=== PATIENT | female | born 1980 | race Two or more races ===

== ENCOUNTER → 2023-05-09 | Outpatient (REF) | payer OTHER ==
[2023-05-09 17:21] LABS: TOTAL IRON BINDING CAPACITY 393 UG/DL (250-425)
[2023-05-09 17:23] LABS: ALBUMIN 3.6 G/DL (3.2-5.2); ALKALINE PHOSPHATASE 81 U/L (46-116); ALT/SGPT 14 U/L (7.0-40); AST/SGOT 15 U/L (<34); BILIRUBIN,TOTAL 0.2 MG/DL (0.3-1.2); BLOOD UREA NITROGEN 13 MG/DL (9-23); CALCIUM LEVEL 8.3 MG/DL (8.5-10.1); CARBON DIOXIDE LEVEL 25 MMOL/L (20-31); CHLORIDE LEVEL 107 MMOL/L (98-107); CHOLESTEROL LEVEL 129 MG/DL (<200); CHOLESTEROL RISK RATIO 3.72 (<5); CREATININE FOR GFR 0.54 MG/DL (0.55-1.30); GLOMERULAR FILTRATION RATE > 60.0 (>58); GLUCOSE, FASTING 244 MG/DL (60-100); HDL CHOLESTEROL 34.6 MG/DL (>40); IRON (FE) 10 UG/DL (50-170); LDL CHOLESTEROL 55.8 MG/DL (<100); NON-HDL-C 94.4 MG/DL; PERCENT SATURATION 2.5 % (13.2-45.0); POTASSIUM SERUM 4.9 MMOL/L (3.5-5.1); SODIUM LEVEL 136 MMOL/L (136-145); THYROID STIMULATING HORMONE 1.056 uIU/ML (0.55-4.78); TOTAL PROTEIN 6.9 G/DL (5.7-8.2); TRIGLYCERIDES LEVEL 193 MG/DL (<150)
[2023-05-09 17:24] LABS: FERRITIN 2.5 NG/ML (7.3-270.7)
[2023-05-09 19:12] LABS: CREATININE, URINE 179.5 MG/DL
[2023-05-09 19:13] LABS: MAU/CREAT RATIO 124.2 MCG/MG (0.0-30.0)
== END ==
LOC: M LAB REF 16:26
PROVIDERS: ATTEND Physician Assistant
DX: E55.9 Vitamin D deficiency, unspecified (principal); D64.9 Anemia, unspecified; E11.9 Type 2 diabetes mellitus without complications; I10 Essential (primary) hypertension; E04.9 Nontoxic goiter, unspecified

== ENCOUNTER → 2023-05-17 | Outpatient (CLI) | payer OTHER | LOC: M WHC 14:08 | PROVIDERS: ATTEND Physician Assistant | DX: Z12.31 Encounter for screening mammogram for malignant neoplasm of breast (principal) ==

== ENCOUNTER → 2023-06-06 | Outpatient (CLI) | payer OTHER ==
[2023-06-06 13:42] LABS: BASO # 0.1 10^3/uL (0.0-0.2); BASO % 0.8 % (0.0-1.0); EOS # 0.3 10^3/uL (0.0-0.5); EOS % 3.1 % (0.0-3.0); HEMATOCRIT 30.7 % (36.0-47.0); HEMOGLOBIN 8.3 g/dl (12.0-15.5); LYMPH # 2.2 10^3/uL (1.5-5.0); LYMPH % 24.1 % (24.0-44.0); MEAN CORPUSCULAR HEMOGLOBIN 19.2 pg (27.0-33.0); MEAN CORPUSCULAR VOLUME 70.9 fl (80.0-96.0); MONO # 0.7 10^3/uL (0.0-0.8); MONO % 7.9 % (2.0-8.0); NEUTROPHILS # 5.8 10^3/uL (1.5-8.5); NEUTROPHILS % 63.9 % (36.0-66.0); PLATELET COUNT, AUTOMATED 262 10^3/uL (150-450); RED BLOOD COUNT 4.33 10^6/uL (4.00-5.40); WHITE BLOOD COUNT 9.1 10^3/uL (4.0-10.0)
[2023-06-06 14:04] LABS: ALBUMIN 3.4 G/DL (3.2-5.2); BLOOD UREA NITROGEN 13 MG/DL (9-23); CALCIUM LEVEL 8.5 MG/DL (8.5-10.1); CARBON DIOXIDE LEVEL 26 MMOL/L (20-31); CHLORIDE LEVEL 106 MMOL/L (98-107); CREATININE FOR GFR 0.43 MG/DL (0.55-1.30); GLOMERULAR FILTRATION RATE > 60.0 (>58); GLUCOSE, FASTING 228 MG/DL (60-100); PHOSPHORUS LEVEL 3.2 MG/DL (2.5-4.9); SODIUM LEVEL 139 MMOL/L (136-145)
== END ==
LOC: M WUC 09:24
PROVIDERS: ATTEND Physician Assistant
DX: I10 Essential (primary) hypertension (principal); D64.9 Anemia, unspecified

== ENCOUNTER → 2023-06-29 | Outpatient (REF) | payer OTHER ==
[2023-06-29 19:12] LABS: HEMATOCRIT 33.9 % (36.0-47.0); HEMOGLOBIN 9.2 g/dl (12.0-15.5); MEAN CORPUSCULAR HGB CONC 27.1 g/dl (32.0-36.5); MEAN CORPUSCULAR VOLUME 70.2 fl (80.0-96.0); RED BLOOD COUNT 4.83 10^6/uL (4.00-5.40)
[2023-06-29 19:23] LABS: PERCENT SATURATION 3.4 % (13.2-45.0)
[2023-06-29 19:26] LABS: FERRITIN 1.8 NG/ML (7.3-270.7)
[2023-06-29 19:35] LABS: PLATELET COUNT, AUTOMATED 228 10^3/uL (150-450)
[2023-06-29 19:42] LABS: ATYPICAL LYMPH 1 % (0-5); BASOPHILS 2 % (0-1); EOSINOPHILS 4 % (0-3); LYMPHOCYTES 65 % (16-44); MONOCYTES 10 % (0-5); NEUTROPHILS 18 % (28-66)
[2023-06-29 19:43] LABS: HYPOCHROMASIA 2+
[2023-06-29 19:56] LABS: ANISOCYTOSIS 2+; SCHISTOCYTES 1+
[2023-06-29 19:57] LABS: OVALOCYTES 1+
[2023-06-29 19:58] LABS: BURR CELLS 1+; PLATELET ESTIMATE NORMAL (NORMAL); TARGET CELLS 1+
== END ==
LOC: M LAB REF 17:40
PROVIDERS: ATTEND Physician Assistant
DX: D50.9 Iron deficiency anemia, unspecified (principal)

== ENCOUNTER → 2023-07-06 | Outpatient (CLI) | payer OTHER | LOC: M RAD 15:40 | PROVIDERS: ATTEND Physician Assistant | DX: E04.9 Nontoxic goiter, unspecified (principal) ==

== ENCOUNTER → 2023-08-16 | Outpatient (CLI) | payer OTHER ==
[2023-08-16 16:30] LABS: BLOOD UREA NITROGEN 14 MG/DL (9-23); CALCIUM LEVEL 9.5 MG/DL (8.5-10.1); CARBON DIOXIDE LEVEL 27 MMOL/L (20-31); CHLORIDE LEVEL 104 MMOL/L (98-107); CREATININE FOR GFR 0.51 MG/DL (0.55-1.30); GLOMERULAR FILTRATION RATE > 60.0 (>58); GLUCOSE, FASTING 364 MG/DL (60-100); MAGNESIUM LEVEL 1.6 MG/DL (1.8-2.4); POTASSIUM SERUM 4.1 MMOL/L (3.5-5.1); SODIUM LEVEL 139 MMOL/L (136-145)
== END ==
LOC: M WUC 13:11
PROVIDERS: ATTEND Nurse Practitioner Family
DX: I10 Essential (primary) hypertension (principal)

== ENCOUNTER → 2023-10-04 | Outpatient (REF) | payer OTHER, MEDICAID | LOC: M LAB REF 16:29 | PROVIDERS: ATTEND Nurse Practitioner Family | DX: J02.9 Acute pharyngitis, unspecified (principal) ==

== ENCOUNTER → 2024-03-07 | Outpatient (REF) | payer OTHER, MEDICAID ==
[~2024-03-07] MED LIST: GLIP10TA6 PO; HYDR12.55 PO; IBUP-1022 PO; MAGN250T11 PO; MIRA3350 PO
[2024-03-07 18:32] LABS: ALBUMIN 3.6 G/DL (3.2-5.2); BLOOD UREA NITROGEN 14 MG/DL (9-23); CALCIUM LEVEL 9.2 MG/DL (8.5-10.1); CARBON DIOXIDE LEVEL 28 MMOL/L (20-31); CHLORIDE LEVEL 102 MMOL/L (98-107); CHOLESTEROL LEVEL 117 MG/DL (<200); CHOLESTEROL RISK RATIO 3.23 (<5); CREATININE FOR GFR 0.51 MG/DL (0.55-1.30); GLOMERULAR FILTRATION RATE > 60.0 (>58); GLUCOSE, FASTING 310 MG/DL (60-100); HDL CHOLESTEROL 36.2 MG/DL (>40); LDL CHOLESTEROL 44.4 MG/DL (<100); NON-HDL-C 80.8 MG/DL; POTASSIUM SERUM 3.8 MMOL/L (3.5-5.1); SODIUM LEVEL 138 MMOL/L (136-145); TRIGLYCERIDES LEVEL 182 MG/DL (<150)
[2024-03-07 18:36] LABS: HEMOGLOBIN A1c 11.7 % (4.0-6.0)
== END ==
LOC: M LAB REF 17:25
PROVIDERS: ATTEND Physician Assistant
DX: E11.9 Type 2 diabetes mellitus without complications (principal); I10 Essential (primary) hypertension

== ENCOUNTER → 2024-05-21 | Outpatient (REF) | payer OTHER, MEDICAID ==
[2024-05-21 18:13] LABS: BLOOD UREA NITROGEN 12 MG/DL (9-23); CALCIUM LEVEL 8.6 MG/DL (8.5-10.1); CARBON DIOXIDE LEVEL 22 MMOL/L (20-31); CHLORIDE LEVEL 107 MMOL/L (98-107); CREATININE FOR GFR 0.41 MG/DL (0.55-1.30); GLOMERULAR FILTRATION RATE > 60.0 (>58); GLUCOSE, FASTING 368 MG/DL (60-100); POTASSIUM SERUM 4.4 MMOL/L (3.5-5.1); SODIUM LEVEL 136 MMOL/L (136-145)
== END ==
LOC: M LAB REF 16:46
PROVIDERS: ATTEND Physician Assistant
DX: E11.9 Type 2 diabetes mellitus without complications (principal)

== ENCOUNTER 2025-02-05 13:28 | Emergency (ER) | payer MEDICAID, OTHER ==
[~2025-02-05] VITALS: Ht 170.2 cm; Wt 85.4 kg
[~2025-02-05 13:28] MED LIST changes: +GLIP10TA15 PO; -GLIP10TA6 PO
[2025-02-05] MEDS ORDERED: ATOR1TAB19 (13:37)
[2025-02-05] MEDS ORDERED: FERR324T2 (13:37)
[2025-02-05 15:20] LABS: BASO # 0.1 10^3/uL (0.0-0.2); BASO % 0.5 % (0.0-1.0); EOS # 0.1 10^3/uL (0.0-0.5); EOS % 0.9 % (0.0-3.0); HEMATOCRIT 33.5 % (36.0-47.0); HEMOGLOBIN 9.1 g/dl (12.0-15.5); LYMPH % 13.8 % (24.0-44.0); MEAN CORPUSCULAR HEMOGLOBIN 19.5 pg (27.0-33.0); MEAN CORPUSCULAR HGB CONC 27.2 g/dl (32.0-36.5); MEAN CORPUSCULAR VOLUME 71.7 fl (80.0-96.0); MONO # 0.8 10^3/uL (0.0-0.8); MONO % 5.7 % (2.0-8.0); NEUTROPHILS # 11.5 10^3/uL (1.5-8.5); NEUTROPHILS % 78.3 % (36.0-66.0); PLATELET COUNT, AUTOMATED 212 10^3/uL (150-450); RED BLOOD COUNT 4.67 10^6/uL (4.00-5.40); WHITE BLOOD COUNT 14.7 10^3/uL (4.0-10.0)
[2025-02-05 15:27] LABS: ERYTHROCYTE SEDIMENTATION RATE 62 mm/hr (0-20)
[2025-02-05 15:33] LABS: BLOOD UREA NITROGEN 11 MG/DL (9-23); C REACTIVE PROTEIN QUANTITATIV < 0.50 MG/DL (<1.0); CALCIUM LEVEL 8.6 MG/DL (8.5-10.1); CARBON DIOXIDE LEVEL 24 MMOL/L (20-31); CHLORIDE LEVEL 105 MMOL/L (98-107); CREATININE FOR GFR 0.43 MG/DL (0.55-1.30); GLOMERULAR FILTRATION RATE > 60.0 (>58); GLUCOSE, FASTING 324 MG/DL (60-100); POTASSIUM SERUM 4.2 MMOL/L (3.5-5.1); SODIUM LEVEL 139 MMOL/L (136-145)
[2025-02-05 16:53] LABS: OSMOLALITY SERUM 300 MOSM/KG (275-295)
[2025-02-05 17:06] LABS: ACETONE/KETONE 0.13 MMOL/L (0.02-0.27)
[2025-02-05] MEDS: LIDOCAINE 2% MDV 20ML VIAL SC ONE (17:10)
[2025-02-05 18:03] LABS: KETONE, URINE AUTO RFX NEGATIVE (NEGATIVE); LEUKOCYTE ESTERASE UR AUTO RFX NEGATIVE (NEGATIVE); MUCUS, URINE RFX SMALL (NEGATIVE); NITRITE, URINE AUTO RFX NEGATIVE (NEGATIVE); RBC, URINE AUTO RFX TNTC /HPF (0-3); SQUAM EPITHELIAL CELL UR AURFX 2 /HPF (0-6); WBC, URINE AUTO RFX 0 /HPF (0-3)
[2025-02-05] MEDS ORDERED: SULF1TAB23 PO (18:10)
[2025-02-05] MEDS ORDERED: OXYC1TAB23 PO (18:13)
[2025-02-05] MEDS ORDERED: AMOX875T2 PO (18:13)
[2025-02-05] MEDS ORDERED: KETO10TAB PO (18:19)
[2025-02-05] MEDS: KETOROLAC 30 MG/ML 1ML VIAL IV ONE (18:23)
[2025-02-05 19:18] VITALS: BP 173/81; TEMP 98.7; O2SAT 100
[2025-02-05 19:44] LABS: GC DNA AMPLIFICATION NEGATIVE (NEGATIVE)
[2025-02-07 12:44] LABS: Trichomonas vaginalis (AMP) NOT DETECTED (NEGATIVE)
== END 2025-02-05 19:21 | disposition home or self-care (01) ==
LOC: M ED 13:28
DX: N75.1 Abscess of Bartholin's gland (principal); E11.65 Type 2 diabetes mellitus with hyperglycemia; I10 Essential (primary) hypertension; E78.5 Hyperlipidemia, unspecified; F17.200 Nicotine dependence, unspecified, uncomplicated; Z79.2 Long term (current) use of antibiotics; Z79.02 Long term (current) use of antithrombotics/antiplatelets; Z79.899 Other long term (current) drug therapy; Z79.1 Long term (current) use of non-steroidal anti-inflammatories (NSAID)
CPT/HCPCS: 56420; 80048; 81001; 82010; 83605; 83930; 85025; 85652; 86140; 87040; 87070; 87077; 87186; 87205; 87661; 87810; 87850; 96374; 99284; J1885

== ENCOUNTER 2025-09-12 13:29 | Inpatient (IN) | payer OTHER ==
[~2025-09-12] VITALS: Ht 170.2 cm; Wt 85.0 kg
[~2025-09-12 13:29] MED LIST changes: +AMOX875T2 PO; +ATOR1TAB19; +FERR324T2; -IBUP-1022 PO; +IBUP600T42 PO; +KETO10TAB PO; +OXYC1TAB23 PO; +SULF1TAB23 PO
[2025-09-12] MEDS: amLODIPine 5 MG TAB PO ONE ×2 (14:27→18:26)
[2025-09-12 15:12] LABS: BASO # 0.1 10^3/uL (0.0-0.2); BASO % 0.3 % (0.0-1.0); EOS # 0.1 10^3/uL (0.0-0.5); EOS % 0.8 % (0.0-3.0); LYMPH # 1.7 10^3/uL (1.5-5.0); LYMPH % 9.6 % (24.0-44.0); MONO # 1.0 10^3/uL (0.0-0.8); MONO % 5.8 % (2.0-8.0); NEUTROPHILS # 14.6 10^3/uL (1.5-8.5); NEUTROPHILS % 83.0 % (36.0-66.0); PLATELET COUNT, AUTOMATED 265 10^3/uL (150-450)
[2025-09-12 15:37] LABS: CALCIUM LEVEL 8.9 MG/DL (8.5-10.1); CARBON DIOXIDE LEVEL 25 MMOL/L (20-31); CHLORIDE LEVEL 102 MMOL/L (98-107); CREATININE FOR GFR 0.48 MG/DL (0.55-1.30); GLOMERULAR FILTRATION RATE > 90.0 (>58); POTASSIUM SERUM 3.9 MMOL/L (3.5-5.1); SODIUM LEVEL 139 MMOL/L (136-145)
[2025-09-12 15:39] LABS: HCG, SERUM QUALITATIVE NEGATIVE (NEGATIVE)
[2025-09-12] MEDS: ACETAMINOPHEN *IV* 1,000 MG in IV 1 EA IV ONE (15:42)
[2025-09-12] MEDS: CLINDAMYCIN 600 MG in IV 1 EA IV ONE (16:00)
[2025-09-12] MEDS ORDERED: metroNIDAZOLE 750 MG in IV 1 EA IV ONE (16:25)
[2025-09-12] MEDS: metroNIDAZOLE 500 MG in IV 1 EA IV ONE (16:35)
[2025-09-12] MEDS ORDERED: ACET-897 PO (16:40)
[2025-09-12] MEDS ORDERED: HOME MED LIST COMPLETE! XX SCH (16:40)
[2025-09-12] MEDS: hydrALAZINE 20 MG/ML 1 ML VIAL IV ONE (16:54)
[2025-09-12] MEDS ORDERED: GLUCOSE 4 GM CHEW PO PRN (17:10)
[2025-09-12] MEDS ORDERED: GLUCAGON INJ 1 MG VIAL SC PRN (17:10)
[2025-09-12] MEDS ORDERED: MAALOX 30 ML SUSP *UDC PO PRN (17:10)
[2025-09-12] MEDS ORDERED: DEXTROSE 50% 50 ML SYRINGE IV PRN (17:10)
[2025-09-12] MEDS ORDERED: MOM 30 ML SUSPENSION UDC PO PRN (17:10)
[2025-09-12] MEDS ORDERED: ISOVUE-370 76% 100 ML VIAL As Ordered ONE (17:17)
[2025-09-12] MEDS: NS (Normal Saline) 0.9% 1,000 ML IV SCH (18:26)
[2025-09-12 18:37] LABS: ESTIMATED AVERAGE GLUCOSE 240.0 MG/DL (60-110); INR 0.96
[2025-09-12] MEDS: MORPHINE 4 MG/ML 1 ML VIAL IV PRN (18:40)
[2025-09-12] MEDS: INSULIN LISPRO (NovoLOG) PER UNIT SC SCH ×2 (18:45→21:00)
[2025-09-12 18:54] LABS: C REACTIVE PROTEIN QUANTITATIV < 0.50 MG/DL (<1.0); CHOLESTEROL LEVEL 122 MG/DL (<200); CHOLESTEROL RISK RATIO 3.06 (<5); LDL CHOLESTEROL 63.2 MG/DL (<100); NON-HDL-C 82.2 MG/DL; TRIGLYCERIDES LEVEL 95 MG/DL (<150)
[2025-09-12 18:59] LABS: ANTI-STREPTOLYSIN O QUANT 74.4 IU/ML (<195)
[2025-09-12] MEDS: hydrALAZINE 20 MG/ML 1 ML VIAL IV PRN (19:34)
[2025-09-12] MEDS: VANCOMYCIN HCL 1,500 MG, VIAL MATE ADAPTER 1 EACH in NS 500 ML IV ONE (19:42)
[2025-09-12] MEDS ORDERED: MORPHINE 4 MG/ML 1 ML VIAL IV PRN (21:05)
[2025-09-12] MEDS: DOCUSATE SODIUM 100 MG CAPSULE PO SCH (21:06)
[2025-09-12] MEDS: MORPHINE 4 MG/ML 1 ML VIAL IV STA (21:53)
[2025-09-12] MEDS ORDERED: PERCOCET 5MG/325MG TAB PO PRN (22:05)
[2025-09-12] MEDS: PIPERACILLIN/TAZOBACTAM SOD 3.375 GM in DEXTROSE 5% (D5W) ADV/MINI-BAG 50 ML IV SCH (22:19)
[2025-09-12] MEDS: PERCOCET 5MG/325MG TAB PO PRN (23:20)
[2025-09-13] VITALS (8 sets, daily range): BP systolic 140–191; BP diastolic 78–93; TEMP 97.3–98.7; O2SAT 97–99
[2025-09-13] MEDS ORDERED: hydrALAZINE 20 MG/ML 1 ML VIAL IV PRN (01:00)
[2025-09-13] MEDS: VANCOMYCIN HCL 1,000 MG, VIAL MATE ADAPTER 1 EACH in NS 250 ML IV SCH (03:29)
[2025-09-13 07:09] LABS: BASO # 0.0 10^3/uL (0.0-0.2); BASO % 0.2 % (0.0-1.0); EOS # 0.2 10^3/uL (0.0-0.5); EOS % 0.8 % (0.0-3.0); LYMPH # 1.4 10^3/uL (1.5-5.0); LYMPH % 7.1 % (24.0-44.0); MONO # 1.0 10^3/uL (0.0-0.8); MONO % 5.3 % (2.0-8.0); NEUTROPHILS # 16.7 10^3/uL (1.5-8.5); NEUTROPHILS % 86.0 % (36.0-66.0); PLATELET COUNT, AUTOMATED 231 10^3/uL (150-450)
[2025-09-13 07:39] LABS: ALT/SGPT 12 U/L (7.0-40); AST/SGOT 12 U/L (<34); CALCIUM LEVEL 8.3 MG/DL (8.5-10.1); CARBON DIOXIDE LEVEL 23 MMOL/L (20-31); CHLORIDE LEVEL 104 MMOL/L (98-107); CREATININE FOR GFR 0.47 MG/DL (0.55-1.30); GLOMERULAR FILTRATION RATE > 90.0 (>58); MAGNESIUM LEVEL 1.5 MG/DL (1.8-2.4); POTASSIUM SERUM 3.5 MMOL/L (3.5-5.1); SODIUM LEVEL 138 MMOL/L (136-145)
[2025-09-13 07:40] LABS: C REACTIVE PROTEIN QUANTITATIV < 0.50 MG/DL (<1.0)
[2025-09-13] MEDS: amLODIPine 10 MG TAB PO SCH (08:52)
[2025-09-13] MEDS: ENOXAPARIN 40 MG/0.4 ML SYRINGE (J1650 PER 10MG) SC SCH (09:00)
[2025-09-13] MEDS: MAG SULF 1GM/100ML (MAG RUN) 1 GM in IV 1 EA IV SCH (10:00)
[2025-09-13] MEDS ORDERED: ATOR40TA75 PO (10:22)
[2025-09-13] MEDS: VANCOMYCIN HCL 1,250 MG, VIAL MATE ADAPTER 1 EACH in NS 250 ML IV SCH (11:00)
[2025-09-13] MEDS ORDERED: LIDOCAINE 2% 100 MG/5 ML SDV (FOR ANES.) As Ordered ONE (14:19)
[2025-09-13] MEDS ORDERED: MIDAZOLAM INJ 2 MG/2 ML VIAL As Ordered ONE (14:19)
[2025-09-13] MEDS: HYDROMORPHONE HCL 0.5 MG/0.5 ML SYRINGE IV ONE (14:55)
[2025-09-13] MEDS ORDERED: dexAMETHasone 4 MG/ML 1 ML VIAL As Ordered ONE (15:43)
[2025-09-13] MEDS ORDERED: ONDANSETRON 4MG 2ML VIAL As Ordered ONE (15:43)
[2025-09-13] MEDS ORDERED: PHENYLephrine 500MCG 5ML (100MCG/ML) SYRINGE As Ordered ONE (15:53)
[2025-09-13] MEDS: LIDOCAINE W/EPINEPHrine 1% 20 ML VIAL As Ordered ONE (15:58)
[2025-09-13] MEDS: hydrALAZINE 20 MG/ML 1 ML VIAL IV PRN (18:21)
[2025-09-13] MEDS: ACETAMINOPHEN 325 MG TAB PO PRN (18:23)
[2025-09-13] MEDS: KETOROLAC 30 MG/ML 1 ML VIAL IV SCH (20:30)
[2025-09-13] MEDS: ATORVASTATIN 20 MG TAB PO SCH (20:31)
[2025-09-14] VITALS (7 sets, daily range): BP systolic 130–178; BP diastolic 70–82; TEMP 97–98; O2SAT 97–100
[2025-09-14 05:50] LABS: BASO # 0.1 10^3/uL (0.0-0.2); BASO % 0.2 % (0.0-1.0); EOS # 0.0 10^3/uL (0.0-0.5); EOS % 0.0 % (0.0-3.0); LYMPH # 1.3 10^3/uL (1.5-5.0); LYMPH % 5.3 % (24.0-44.0); MONO # 1.0 10^3/uL (0.0-0.8); MONO % 4.1 % (2.0-8.0); NEUTROPHILS # 22.2 10^3/uL (1.5-8.5); NEUTROPHILS % 89.8 % (36.0-66.0); PLATELET COUNT, AUTOMATED 234 10^3/uL (150-450)
[2025-09-14 06:21] LABS: C REACTIVE PROTEIN QUANTITATIV < 0.50 MG/DL (<1.0)
[2025-09-14 06:22] LABS: ALT/SGPT < 9 U/L (7.0-40); AST/SGOT 12 U/L (<34); CALCIUM LEVEL 8.5 MG/DL (8.5-10.1); CARBON DIOXIDE LEVEL 22 MMOL/L (20-31); CHLORIDE LEVEL 106 MMOL/L (98-107); CREATININE FOR GFR 0.59 MG/DL (0.55-1.30); GLOMERULAR FILTRATION RATE > 90.0 (>58); MAGNESIUM LEVEL 1.9 MG/DL (1.8-2.4); POTASSIUM SERUM 3.7 MMOL/L (3.5-5.1); SODIUM LEVEL 140 MMOL/L (136-145)
[2025-09-14] MEDS: VANCOMYCIN HCL 1,000 MG, VIAL MATE ADAPTER 1 EACH in NS 250 ML IV SCH (12:44)
[2025-09-14] MEDS: MORPHINE 10 MG/ML 1 ML VIAL IV ONE (15:27)
[2025-09-14] MEDS ORDERED: ONDANSETRON 4MG 2ML VIAL IV PRN (20:05)
[2025-09-15 04:00] VITALS: BP 160/77; TEMP 97; O2SAT 100
[2025-09-15 05:46] LABS: BASO # 0.1 10^3/uL (0.0-0.2); BASO % 0.4 % (0.0-1.0); EOS # 0.2 10^3/uL (0.0-0.5); EOS % 1.4 % (0.0-3.0); LYMPH # 2.3 10^3/uL (1.5-5.0); LYMPH % 15.9 % (24.0-44.0); MONO # 1.1 10^3/uL (0.0-0.8); MONO % 7.3 % (2.0-8.0); NEUTROPHILS # 10.9 10^3/uL (1.5-8.5); NEUTROPHILS % 74.7 % (36.0-66.0); PLATELET COUNT, AUTOMATED 178 10^3/uL (150-450)
[2025-09-15 06:12] LABS: C REACTIVE PROTEIN QUANTITATIV < 0.50 MG/DL (<1.0)
[2025-09-15 06:19] LABS: ALT/SGPT 24 U/L (7.0-40); AST/SGOT 34 U/L (<34); CALCIUM LEVEL 8.0 MG/DL (8.5-10.1); CARBON DIOXIDE LEVEL 23 MMOL/L (20-31); CHLORIDE LEVEL 112 MMOL/L (98-107); CREATININE FOR GFR 0.72 MG/DL (0.55-1.30); GLOMERULAR FILTRATION RATE > 90.0 (>58); MAGNESIUM LEVEL 1.6 MG/DL (1.8-2.4); POTASSIUM SERUM 3.7 MMOL/L (3.5-5.1); SODIUM LEVEL 144 MMOL/L (136-145)
[2025-09-15] MEDS: MAG SULF 1GM/100ML (MAG RUN) 1 GM in IV 1 EA IV SCH (08:17)
[2025-09-15 08:20] VITALS: BP 184/73
[2025-09-15 08:25] LABS: IRON (FE) 9 UG/DL (50-170); PERCENT SATURATION 3.5 % (13.2-45.0)
[2025-09-15 08:27] LABS: VITAMIN B12 LEVEL 609 PG/ML (211-911)
[2025-09-15] MEDS ORDERED: TRIMETHOPRIM/SULFAMETH 80/400 MG TAB PO SCH (09:00)
[2025-09-15 11:38] VITALS: BP 148/76; TEMP 97; O2SAT 100
[2025-09-15] MEDS: FERRIC CARBOXYMALTOSE INJ 750 MG, VIAL MATE ADAPTER 1 EACH in NS 100 ML IV ONE (12:06)
[2025-09-15] MEDS: BACTRIM 160MG/800MG DS TAB PO SCH (12:06)
[2025-09-15] MEDS ORDERED: OXYC-517 PO (15:20)
[2025-09-15] MEDS ORDERED: BACTDSTA PO (15:20)
[2025-09-15] MEDS ORDERED: METF-877 PO (15:20)
[2025-09-15] MEDS ORDERED: METR-265 PO (15:20)
[2025-09-15] MEDS ORDERED: CARV12.5 PO (15:20)
[2025-09-15] MEDS ORDERED: COLA100C5 PO (15:20)
[2025-09-15] MEDS ORDERED: AMLO1TAB25 PO (15:20)
[2025-09-15] MEDS ORDERED: FERR325T3 PO (15:53)
== END 2025-09-15 17:00 | disposition home health service (06) | DRG 710 ==
LOC: M ED 13:29 → M ED INP 17:09 → M PCU 09-13 17:10 → M MS4PR 09-14 21:33
PROVIDERS: ADMIT Internal Medicine; ATTEND Internal Medicine
PROC: 0U9M00Z Drainage of Vulva with Drainage Device, Open Approach (ICD-10-PCS; principal; 2025-09-13 13:00)
DX: A41.9 Sepsis, unspecified organism (principal); N76.4 Abscess of vulva; I10 Essential (primary) hypertension; I16.0 Hypertensive urgency; E11.9 Type 2 diabetes mellitus without complications; D50.9 Iron deficiency anemia, unspecified; E83.42 Hypomagnesemia; F17.200 Nicotine dependence, unspecified, uncomplicated; Z79.899 Other long term (current) drug therapy